=== PATIENT | female | born 1945 | race Caucasian/White ===

== ENCOUNTER → 2016-11-24 | Outpatient (CLI) | payer MEDICARE, OTHER ==
[~2016-11-24] MED LIST: ASCO500T2 PO; ASPI-482 PO; CALC-313 PO; CELE200C PO; CHOL100013 PO; CRESTOR10 MG PO; CYAN200014 PO; FLEC100T PO; HYDR-2163 PO; METO25TA4 PO; NIFE90TA9 PO; OMEG-33 PO; QUIN1TAB6 PO
--- NOTE | 2016-11-24 12:23 | RAD ---
DATE: 11/24/2016. EXAM: DIGITAL SCREEN BILAT W/CAD. HISTORY: Routine mammographic screening. COMPARISON: 11/05/2013. This study was interpreted with the benefit of Computerized Aided Detection (CAD). FINDINGS: The breast parenchyma shows scattered fibroglandular densities. There is a new small nodule posteriorly and slightly laterally on the right CC view. It may correspond with a small nodule posterior superiorly on the MLO projection. See annotations. Scattered calcifications on the left appear benign. There is no suspicious finding on the left. BI-RADS CATEGORY: 0 INCOMPLETE: NEEDS ADDITIONAL IMAGING EVALUATION AND/OR PRIOR MAMMOGRAMS FOR COMPARISON.. RECOMMENDED FOLLOW-UP: ADD ADDITIONAL IMAGING. Recommend spot compression and sonography superolaterally on the right to assess a new nodule. See annotations. PQRS compliance statement: Patient information was entered into a reminder system with a target due date (now) for the next mammogram. Mammography is a sensitive method for finding small breast cancers, but it does not detect them all and is not a substitute for careful clinical examination. A negative mammogram does not negate a clinically suspicious finding and should not result in delay in biopsying a clinically suspicious abnormality. "Our facility is accredited by the [employer] Mammography Program."
== END | disposition home or self-care (01) ==
LOC: MAMMO 09:11
PROVIDERS: ATTEND Family Medicine
DX: Z12.31 Encounter for screening mammogram for malignant neoplasm of breast (principal)
CPT/HCPCS: G0202; 77067

== ENCOUNTER → 2016-11-24 | Outpatient (CLI) | payer MEDICARE, OTHER ==
[2016-11-24 09:40] LABS: CHOLESTEROL/HDL RATIO 2.7
--- NOTE | 2016-11-24 13:52 | CARD ---
APPROVED REPORT EXAM: Two-dimensional and M-mode echocardiogram with Doppler and color Doppler. Other Information Quality : AverageHR: 55bpm INDICATION Paroxysmal supraventricular tachycardia 2D DIMENSIONS RVDd3.2 (2.9-3.5cm)Left Atrium(2D)3.1 (1.6-4.0cm) IVSd1.0 (0.7-1.1cm)Aortic Root(2D)2.9 (2.0-3.7cm) LVDd5.0 (3.9-5.9cm)LVOT Diameter2.0 (1.8-2.4cm) PWd0.8 (0.7-1.1cm)LVDs3.6 (2.5-4.0cm) FS (%) 27.3 %SV62.9 ml Aortic Valve AoV Peak Henrry.137.4cm/sAoV VTI34.1cm AO Peak GR.7.5mmHgLVOT Peak Henrry.110.7cm/s LVOT VTI 28.33cmAO Mean GR.4mmHg JUNG (VMAX)2.02pc6OVX (VTI)2.64cm2 Mitral Valve MV E Xvugwbkg81.2cm/sMV DECEL ZYYY852pr MV A Jibhurrl45.4cm/sMV E Mean Gr.1mmHg MV UEK84akE/A Ratio1.0 MV A Cgnsgkvz431mrHFD (PHT)2.81cm2 TDI E/Lateral E'8.2E/Medial E'9.1 Pulmonary Valve PV Peak Abmalwlu27.3cm/sPV Peak Grad.2mmHg RVOT VTI14.0cm Tricuspid Valve TR P. Yywkbhsf330ia/sRAP HWQRZIHM5lvXm TR Peak Gr.50jaCnKZVL24csKs Pulmonary Vein S1 Ewhiwfrt87.3cm/sD2 Vpqqldeo53.7cm/s PVa qvxlnxzd244ieri LEFT VENTRICLE The left ventricle is normal size. There is normal left ventricular wall thickness. Left ventricle sy stolic function is normal. The Ejection Fraction is 55-60%. There is normal LV segmental wall motion. Transmitral Doppler flow pattern is Grade I-abnormal relaxation pattern. There is no ventricular sep libra defect visualized. RIGHT VENTRICLE The right ventricle is normal size. There is normal right ventricular wall thickness. The right ventr icular systolic function is normal. ATRIA The left atrium size is normal. The right atrium size is normal. The interatrial septum is intact wit h no evidence for an atrial septal defect or patent foramen ovale as noted on 2-D or Doppler imaging. AORTIC VALVE The aortic valve is normal in structure and function. Doppler and Color Flow revealed no significant aortic regurgitation. There is no significant aortic valvular stenosis. MITRAL VALVE The mitral valve is normal in structure. There is no evidence of mitral valve prolapse. There is no m itral valve stenosis. Doppler and Color Flow revealed mild mitral regurgitation. TRICUSPID VALVE The tricuspid valve is normal in structure. Doppler and Color Flow revealed mild tricuspid regurgitat ion. The PA pressure was estimated at 30 mmHg. PULMONIC VALVE The pulmonary valve is normal in structure and function. Doppler and Color Flow revealed trace pulmon ic valvular regurgitation. GREAT VESSELS The aortic root is normal in size. The ascending aorta is normal in size. Normal pulmonary venous kenn w (Doppler). The IVC is normal in size and collapses >50% with inspiration. PERICARDIAL EFFUSION There is no pleural effusion. There is no evidence of significant pericardial effusion. Critical Notification Critical Value: No <Conclusion> The left ventricle is normal size. Left ventricle systolic function is normal. The Ejection Fraction is 55-60%. There is no significant aortic valvular stenosis. Doppler and Color Flow revealed no significant aortic regurgitation. Doppler and Color Flow revealed mild mitral regurgitation. Doppler and Color Flow revealed mild tricuspid regurgitation. The PA pressure was estimated at 30 mmHg.
== END | disposition home or self-care (01) ==
LOC: ECHO 08:10
PROVIDERS: ATTEND Internal Medicine Cardiovascular Disease
DX: I47.1 Supraventricular tachycardia (principal); E78.5 Hyperlipidemia, unspecified; I34.0 Nonrheumatic mitral (valve) insufficiency; I37.1 Nonrheumatic pulmonary valve insufficiency
CPT/HCPCS: 36415; 80061; 93306

== ENCOUNTER → 2016-11-29 | Outpatient (CLI) | payer MEDICARE, OTHER ==
--- NOTE | 2016-11-29 09:25 | RAD ---
DATE: 11/29/2016 EXAM: DIGITAL DIAGNOSTIC RT HISTORY: Suspicious screening study COMPARISON: 11/24/2016 This study was interpreted with the benefit of Computerized Aided Detection (CAD). FINDINGS: On the screening study a faint nodular opacity was seen on only the right cc view. Spot compression and rolled cc views of that region today failed to show a discrete nodule. Normal heterogeneous fibroglandular shadows are seen. The straight mediolateral view also shows no evidence of a nodule. The appearance on the screening study was probably due to superimposed fibroglandular shadows. IMPRESSION: Additional views of the right breast did not demonstrate a breast nodule. Routine yearly mammographic follow-up is suggested. BI-RADS CATEGORY: 2 BENIGN FINDING(S) RECOMMENDED FOLLOW-UP: 12M 12 MONTH FOLLOW-UP PQRS compliance statement: Patient information was entered into a reminder system with a target due date for the next mammogram. Mammography is a sensitive method for finding small breast cancers, but it does not detect them all and is not a substitute for careful clinical examination. A negative mammogram does not negate a clinically suspicious finding and should not result in delay in biopsying a clinically suspicious abnormality. "Our facility is accredited by the [employer] Mammography Program."
== END | disposition home or self-care (01) ==
LOC: MAMMO 08:45
PROVIDERS: ATTEND Family Medicine
DX: R92.8 Other abnormal and inconclusive findings on diagnostic imaging of breast (principal)
CPT/HCPCS: G0206; 77065

== ENCOUNTER 2016-12-10 02:59 | Inpatient (IN) | payer MEDICARE, OTHER ==
[~2016-12-10] VITALS: Ht 167.6 cm; Wt 85.7 kg
[2016-12-10] MEDS ORDERED: IOHEXOL 300 MG/ML 75 ML VIAL IV ONE (04:00)
[2016-12-10] MEDS ORDERED: CONTRAST GIVEN MC PRN (04:00)
[2016-12-10 04:02] LABS: BASO % 1 % (0-3); EOS % 2 % (0-3); HEMATOCRIT 41.1 % (36.0-47.0); HEMOGLOBIN 13.7 g/dL (12.0-15.5); LYMPH # 2.4 x10^3/uL (1.0-4.8); LYMPH % 35 % (24-48); MEAN CORPUSCULAR HEMOGLOBIN 30 pg (25-35); MEAN CORPUSCULAR HGB CONC 33 g/dL (31-37); MEAN CORPUSCULAR VOLUME 91 fL (79-100); MONO % 10 % (0-9); NEUT % 52 % (31-73); PLATELET COUNT 181 x10^3/uL (140-400); RED BLOOD COUNT 4.53 x10^6/uL (3.50-5.40); RED CELL DISTRIBUTION WIDTH 13.8 % (11.5-14.5); WHITE BLOOD COUNT 6.8 x10^3/uL (4.0-11.0)
[2016-12-10 04:12] LABS: CALCIUM 9.4 mg/dL (8.5-10.1); CREATININE 0.8 mg/dL (0.6-1.0); GFR 70.9; POTASSIUM 3.2 mmol/L (3.5-5.1)
[2016-12-10 04:17] LABS: ALBUMIN 3.7 g/dL (3.4-5.0); TOTAL BILIRUBIN 0.8 mg/dL (0.2-1.0); TOTAL PROTEIN 7.3 g/dL (6.4-8.2)
[2016-12-10 04:21] LABS: BILIRUBIN,URINE NEGATIVE (NEG); GLUCOSE,URINE NEGATIVE (NEG); NITRITE,URINE NEGATIVE (NEG); PROTEIN,URINE NEGATIVE (NEG-TRACE); UROBILINOGEN,URINE 0.2 mg/dL (0.2 mg/dL)
[2016-12-10 04:43] LABS: BACTERIA,URINE 0 /HPF (0-FEW); RBC,URINE OCC /HPF (0-2); SQUAMOUS EPITHELIAL CELL,UR FEW /LPF; WBC,URINE TNTC /HPF (0-4)
--- NOTE | 2016-12-10 04:59 | PHYS DOC ---
Past Medical History Past Medical History: Arrhythmia, Hypertension Past Surgical History: Tonsillectomy Additional Past Surgical Histo: LOW BACK, NECK, HEMROIDS, RIGHT FOOT Alcohol Use: None Adult General Chief Complaint Chief Complaint: ABDOMINAL PAIN HPI HPI 71-year-old female whose presenting with intermittent worsening epigastric and left upper quadrant pain for the last several days. She denies any nausea or vomiting. She states her symptoms have not affected her ability to eat or drink. She says meals do not make the pain worse. She denies any history of abdominal surgery whatsoever. Her pain is rated an 8 out of 10 on the pain scale localized permanently to the left upper quadrant. Review of Systems Review of Systems Constitutional: Denies fever or chills [] Eyes: Denies change in visual acuity, redness, or eye pain [] HENT: Denies nasal congestion or sore throat [] Respiratory: Denies cough or shortness of breath [] Cardiovascular: No additional information not addressed in HPI [] GI: Has abdominal pain, denies nausea, denies vomiting, denies bloody stools or diarrhea [] : Denies dysuria or hematuria [] Musculoskeletal: Denies back pain or joint pain [] Integument: Denies rash or skin lesions [] Neurologic: Denies headache, focal weakness or sensory changes [] Endocrine: Denies polyuria or polydipsia [] Current Medications Current Medications Current Medications Medications (Trade) Dose Ordered Sig/Feliciano Start Time Stop Time Status Last Admin Dose Admin Ceftriaxone Sodium (Rocephin 1gm Ivpb For Omni) 50 ml @ 100 mls/hr 1X ONCE 12/10/16 05:00 12/10/16 05:29 DC 12/10/16 04:59 100 MLS/HR Info 1 each 1 each PRN DAILY PRN 12/10/16 04:00 12/12/16 03:59 Iohexol (Omnipaque 300 Mg/ml) 75 ml 1X ONCE 12/10/16 04:00 12/10/16 04:01 DC 12/10/16 04:30 75 ML Allergies Allergies Allergies Uncoded Allergies Type Severity Reaction Last Updated Verified ADHESIVE TAPE Allergy Mild Rash 06/06/14 Physical Exam Physical Exam Constitutional: Well developed, well nourished, no acute distress, non-toxic appearance. [] HENT: Normocephalic, atraumatic, bilateral external ears normal, oropharynx moist, no oral exudates, nose normal. [] Eyes: PERRLA, EOMI, conjunctiva normal, no discharge. [] Neck: Normal range of motion, no tenderness, supple, no stridor. [] Cardiovascular:Heart rate regular rhythm, no murmur [] Lungs & Thorax: Bilateral breath sounds clear to auscultation [] Abdomen: Bowel sounds normal, soft, no tenderness, no masses, no pulsatile masses. [] Skin: Warm, dry, no erythema, no rash. [] Back: No tenderness, no CVA tenderness. [] Extremities: No tenderness, no cyanosis, no clubbing, ROM intact, no edema. [] Neurologic: Alert and oriented X 3, normal motor function, normal sensory function, no focal deficits noted. [] Psychologic: Affect normal, judgement normal, mood normal. [] Current Patient Data Vital Signs Vital Signs Date Time Temp Pulse Resp B/P Pulse Ox O2 Delivery O2 Flow Rate FiO2 12/10/16 05:30 62 Room Air 12/10/16 05:30 137/63 96 12/10/16 03:13 97.6 20 97.6 Lab Values Laboratory Tests Test 12/10/16 03:40 12/10/16 03:45 White Blood Count 6.8x10^3/uL (4.0-11.0) Red Blood Count 4.53x10^6/uL (3.50-5.40) Hemoglobin 13.7g/dL (12.0-15.5) Hematocrit 41.1% (36.0-47.0) Mean Corpuscular Volume 91fL (79-100) Mean Corpuscular Hemoglobin 30pg (25-35) Mean Corpuscular Hemoglobin Concent 33g/dL (31-37) Red Cell Distribution Width 13.8% (11.5-14.5) Platelet Count 181x10^3/uL (140-400) Neutrophils (%) (Auto) 52% (31-73) Lymphocytes (%) (Auto) 35% (24-48) Monocytes (%) (Auto) 10% (0-9) H Eosinophils (%) (Auto) 2% (0-3) Basophils (%) (Auto) 1% (0-3) Neutrophils # (Auto) 3.6x10^3uL (1.8-7.7) Lymphocytes # (Auto) 2.4x10^3/uL (1.0-4.8) Monocytes # (Auto) 0.7x10^3/uL (0.0-1.1) Eosinophils # (Auto) 0.1x10^3/uL (0.0-0.7) Basophils # (Auto) 0.0x10^3/uL (0.0-0.2) Sodium Level 141mmol/L (136-145) Potassium Level 3.2mmol/L (3.5-5.1) L Chloride Level 104mmol/L (98-107) Carbon Dioxide Level 31mmol/L (21-32) Anion Gap 6 (6-14) Blood Urea Nitrogen 18mg/dL (7-20) Creatinine 0.8mg/dL (0.6-1.0) Estimated GFR (Cockcroft-Gault) 70.9 BUN/Creatinine Ratio 23 (6-20) H Glucose Level 103mg/dL (70-99) H Calcium Level 9.4mg/dL (8.5-10.1) Total Bilirubin 0.8mg/dL (0.2-1.0) Aspartate Amino Transferase (AST) 15U/L (15-37) Alanine Aminotransferase (ALT) 18U/L (14-59) Alkaline Phosphatase 82U/L (46-116) Troponin I Quantitative < 0.017ng/mL (0.000-0.055) Total Protein 7.3g/dL (6.4-8.2) Albumin 3.7g/dL (3.4-5.0) Albumin/Globulin Ratio 1.0 (1.0-1.7) Lipase 43U/L (73-393) L Urine Collection Type Unknown Urine Color Yellow Urine Clarity Clear Urine pH 7.0 Urine Specific [place] 1.020 Urine Protein Negativemg/dL (NEG-TRACE) Urine Glucose (UA) Negativemg/dL (NEG) Urine Ketones (Stick) Negativemg/dL (NEG) Urine Blood Negative (NEG) Urine Nitrite Negative (NEG) Urine Bilirubin Negative (NEG) Urine Urobilinogen Dipstick 0.2mg/dL (0.2 mg/dL) Urine Leukocyte Esterase Large (NEG) Urine RBC Occ/HPF (0-2) Urine WBC Tntc/HPF (0-4) Urine Squamous Epithelial Cells Few/LPF Urine Bacteria 0/HPF (0-FEW) Urine Hyaline Casts Few/HPF Urine Mucus Slight/LPF Laboratory Tests 12/10/16 03:40 Laboratory Tests 12/10/16 03:40 EKG EKG EKG as interpreted by me shows sinus rhythm with a rate of 65 bpm. There is a leftward axis. There are no obvious ischemic findings. Intervals are normal. Radiology/Procedures Radiology/Procedures CT of the abdomen/pelvis with IV contrast demonstrates the following: CT abdomen and pelvis with contrast: Reason for examination: Left upper quadrant pain for 4 days. Helical images were obtained through the abdomen and pelvis with intravenous administration of 75 cc Omnipaque 300. Reconstruction was performed in sagittal and coronal planes. Exposure: One or more of the following individualized dose reduction techniques were used for this examination: 1. Automated exposure control. 2. Adjustment of the mA and/or kV according to patient size. 3. Use of iterative reconstruction technique. The lung bases are clear. The heart size is normal with no pericardial effusion seen. No abnormalities seen at the liver, spleen, adrenal glands or gallbladder. There is fatty atrophy of the pancreas with some mild increase in the density in the adjacent mesenteric fat. Mild changes of pancreatitis cannot be excluded. Recommend clinical correlation. The abdominal aorta and inferior vena cava show no acute abnormalities. No abnormalities seen in the appendix. There is some diverticulosis without evidence of diverticulitis. The small intestinal tract shows no abnormal dilatation or wall thickening and no evidence of obstruction. There is a small hiatal hernia. No other abnormalities are seen in the stomach the kidneys show no renal masses, renal calculi, hydronephrosis or evidence of obstructive uropathy. No abnormalities seen in the bladder, uterus or ovaries. No free fluid or free air is seen in the abdomen or pelvis. There is severe degenerative change at the L5-S1 disc level. No acute bony abnormalities are evident. Impression: Diffuse fatty atrophy of the pancreas with some increased haziness in the adjacent fat. Mild changes of pancreatitis cannot be excluded. Recommend clinical correlation. Diverticulosis in the colon without evidence of diverticulitis. No other focal abnormalities evident in the abdomen or pelvis. Electronically signed by: Afia Luna MD (Dec 10, 2016 05:18:28) Course & Med Decision Making Course & Med Decision Making Pertinent Labs and Imaging studies reviewed. (See chart for details) This 71-year-old female who's having extensive pain to the left upper quadrant has CT findings consistent with mild pancreatitis. Her urinalysis also showed large amounts of WBCs for which a dose of IV Rocephin was ordered and administered. I'll be admitting her for her pancreatitis and will keep her nothing by mouth with fluid and pain control as needed. I discussed the need to admit the patient with Dr. Naik and the possibility to evaluate her gallbladder as a cause as she still has her gallbladder. He was very agreeable with this plan and agreed to accept the patient for admission. Dragon Disclaimer Dragon Disclaimer This electronic medical record was generated, in whole or in part, using a voice recognition dictation system. Departure Departure Impression: Primary Impression: Abdominal pain Additional Impression: Pancreatitis Disposition: ADMITTED INPATIENT Admitting Physician: Ricky Naik Condition: STABLE Referrals: RICKY NAIK MD (PCP) Problem Qualifiers MER SILVERMAN DO Dec 10, 2016 04:59
[2016-12-10] MEDS ORDERED: CEFTRIAXONE 1GM IVPB FOR OMNI 50 ML IV ONE (05:00)
--- NOTE | 2016-12-10 05:20 | RAD ---
CT abdomen and pelvis with contrast: Reason for examination: Left upper quadrant pain for 4 days. Helical images were obtained through the abdomen and pelvis with intravenous administration of 75 cc Omnipaque 300. Reconstruction was performed in sagittal and coronal planes. Exposure: One or more of the following individualized dose reduction techniques were used for this examination: 1. Automated exposure control. 2. Adjustment of the mA and/or kV according to patient size. 3. Use of iterative reconstruction technique. The lung bases are clear. The heart size is normal with no pericardial effusion seen. No abnormalities seen at the liver, spleen, adrenal glands or gallbladder. There is fatty atrophy of the pancreas with some mild increase in the density in the adjacent mesenteric fat. Mild changes of pancreatitis cannot be excluded. Recommend clinical correlation. The abdominal aorta and inferior vena cava show no acute abnormalities. No abnormalities seen in the appendix. There is some diverticulosis without evidence of diverticulitis. The small intestinal tract shows no abnormal dilatation or wall thickening and no evidence of obstruction. There is a small hiatal hernia. No other abnormalities are seen in the stomach the kidneys show no renal masses, renal calculi, hydronephrosis or evidence of obstructive uropathy. No abnormalities seen in the bladder, uterus or ovaries. No free fluid or free air is seen in the abdomen or pelvis. There is severe degenerative change at the L5-S1 disc level. No acute bony abnormalities are evident. Impression: Diffuse fatty atrophy of the pancreas with some increased haziness in the adjacent fat. Mild changes of pancreatitis cannot be excluded. Recommend clinical correlation. Diverticulosis in the colon without evidence of diverticulitis. No other focal abnormalities evident in the abdomen or pelvis. Electronically signed by: Afia Luna MD (Dec 10, 2016 05:18:28)
[2016-12-10] MEDS ORDERED: ONDANSETRON PF 4 MG/2 ML VIAL. IV PRN (05:45)
[2016-12-10 06:30] VITALS: BP 134/59
[2016-12-10 07:00] VITALS: BP 126/57
[2016-12-10] MEDS: FENTANYL PF 100 MCG/2 ML VIAL. IV PRN ×3 (07:33→14:26)
--- NOTE | 2016-12-10 08:09 | EKG ---
[facility] [address] [place] [address] Test Date: 2016-12-10 Test Time: 03:32:19 Pat Name: AUGUST DIAS Department: Room: Gender: F Card Assembler: : 1945 Requested By: MER SILVERMAN Order Number: [id number] Reading MD: Measurements Intervals [place] Rate: 65 P: 32 FL: 176 QRS: -15 QRSD: 94 T: 34 QT: 434 QTc: 452 Interpretive Statements SINUS RHYTHM LEFTWARD AXIS RI6.01 No previous ECG available for comparison
[2016-12-10] MEDS ORDERED: MAGN400C PO (09:26)
[2016-12-10] MEDS ORDERED: VITA150T PO (09:26)
--- NOTE | 2016-12-10 09:42 | ACF ---
Admit Criteria Forms Admit Criteria Forms Admit Criteria Forms PANCREATITIS Clinical Indications for Admission to Inpatient Care (Place 'X' for any and all applicable criteria): Admission is indicated for ANY ONE of the following (1)(2)(3)(4): [ X]I. Acute pancreatitis[A] as indicated by 2 or more of the following: [X ]a) Abdominal pain (eg, epigastric, left upper quadrant) [ ]b) Serum amylase or serum lipase greater than 3 times the upper limit of normal [X ]c) Characteristic findings from abdominal imaging (eg, pancreatic inflammation, pancreatic necrosis, peripancreatic fluid collection)[B] [ ]II. Pancreatitis (acute or chronic ) requiring inpatient care as indicated by 1 or more of the following : [ ]a) Inability to maintain oral hydration Hypoxemia [ ]b) Evidence of infection (eg, fever, peripancreatic abscess) [ ]c) Severe pain requiring acute inpatient management [ ]d) Hemodynamic instability [ ]e) Hypoxemia [ ]f) Acute renal failure [ ]g) Severe electrolyte abnormalities Extended stay beyond goal length of stay may be needed for (1)(11) [ ]a) Severe acute pancreatitis (10)(19) [ ]b) Persistent symptoms, ascites, or pleural effusion [ ]c) Abdominal compartment syndrome (10) [ ]d) Late complications [ ]e) Acute renal failure (27) [ ]f) Gallstones in gallbladder The original [employer] content created by [employer] has been revised. The portions of the content which have been revised are identified through the use of italic text or in bold,and [facility] has neither reviewed nor approved the modified material.All other unmodified content is copyright [employer]. Please see references footnoted in the original [employer] edition 2016 KATHERINE NEWTON Dec 10, 2016 09:42
[2016-12-10 11:00] VITALS: BP 137/69
[2016-12-10] MEDS: HYDROMORPHONE 2 MG/ML VIAL. IVP PRN ×3 (12:11→23:40)
--- NOTE | 2016-12-10 13:30 | PDOC ---
Provider Note Provider Note [id number] RICKY SOTO MD Dec 10, 2016 13:30
--- NOTE | 2016-12-10 13:50 | HP ---
ADMIT DATE: 12/10/2016 CHIEF COMPLAINT: Left upper quadrant abdominal pain. HISTORY OF PRESENT ILLNESS: A 71-year-old white female with normal medical history except for hypertension and hyperlipidemia, came in with 2 days of increasing left-sided upper abdominal pain and nausea. There was no vomiting, fever, chills, urinary tract symptoms, melena, hematochezia, heartburn, cough or other symptoms. CT scan showed some haziness in the pancreas and she was told she had "pancreatitis" even though the lipase and liver function tests were all normal. She was given IV Rocephin because of urinary tract infection. PAST MEDICAL HISTORY: She has had C-sections and joint surgeries. No other serious surgery. She has had atrial fibrillation with ablation done, takes aspirin, Crestor and blood pressure meds for that. ALLERGIES: NO ALLERGIES TO DRUGS. SOCIAL HISTORY: Nonsmoker, nondrinker, , physically active. FAMILY HISTORY: Unremarkable. REVIEW OF SYSTEMS: No other complaints. OBJECTIVE: ENT: All within normal limits. No jaundice or lesions. NECK: No masses, nodes or bruits. LUNGS: Clear. CARDIOVASCULAR: Regular rate. No irregular beat or murmur or tachycardia. BREASTS: Not examined. ABDOMEN: No rashes seen. She is tender, more in the left upper quadrant than anywhere with no guarding, masses or rebound. The right upper quadrant was nontender as was both flanks. EXTREMITIES: Good pedal and radial pulses. No joint or skin lesions or nail bed findings. ASSESSMENT: Left upper quadrant pain, etiology is unclear. She does have urinary tract infection and this certainly could be part of the problem. This could be herpes zoster without skin rash, but no lab ____ support pancreatitis or gallbladder disease. PLAN: Sonogram of the gallbladder, IV fluids, Rocephin, urine culture and followup for skin lesions. RICKY SOTO MD DR: FABIAN/ursula JOB#: [id number] / [id number]
[2016-12-10] MEDS ORDERED: METOPROLOL TART IMMED RELEASE 25 MG TABLET PO SCH ×2 (14:00→15:00)
[2016-12-10] MEDS: IV DEXTROSE 5%-LACT RINGERS 1,000 ML IV SCH ×2 (14:25→23:48)
--- NOTE | 2016-12-10 14:51 | RAD ---
Indication upper abdominal pain. Grayscale imaging was performed. Examination was targeted to the right upper quadrant. No prior imaging is available. There is increased attenuation of the ultrasound beam by the liver compatible with fatty infiltration. A focal mass lesion is not seen in the visualized liver. The gallbladder appears normal. The common bile duct diameter of approximately 5 mm is within normal limits. The right kidney appears unremarkable. The pancreas was largely obscured and poorly visualized. Similarly the IVC was largely obscured. IMPRESSION: Normal gallbladder. Fatty infiltration of the liver. Midline structures obscured by gas
[2016-12-10 15:00] VITALS: BP 129/61
[2016-12-10] MEDS: HYDROCODONE/APAP 5/325MG TABLET. PO PRN (17:12)
[2016-12-10] MEDS: AMLODIPINE BESYLATE 5 MG TABLET PO SCH (17:12)
[2016-12-10 19:33] VITALS: BP 142/63
[2016-12-10 23:06] VITALS: BP 119/65
[2016-12-11 03:09] VITALS: BP 117/67
[2016-12-11] MEDS: FENTANYL PF 100 MCG/2 ML VIAL. IV PRN (05:16)
[2016-12-11] MEDS: CEFTRIAXONE SODIUM 1 GM in IV NORMAL SALINE 50ML 50 ML IV SCH (05:19)
[2016-12-11 07:00] VITALS: BP 147/74
[2016-12-11] MEDS: HYDROCODONE/APAP 5/325MG TABLET. PO PRN (08:42)
[2016-12-11] MEDS: METOPROLOL TART IMMED RELEASE 25 MG TABLET PO SCH (08:42)
[2016-12-11] MEDS: IV DEXTROSE 5%-LACT RINGERS 1,000 ML IV SCH (08:43)
[2016-12-11] MEDS: AMLODIPINE BESYLATE 5 MG TABLET PO SCH (08:43)
--- NOTE | 2016-12-11 10:15 | PDOC ---
Provider Note Provider Note LUQ pain persists, is hyperesthetic there also- opioids not effective- now has 1 cm red slightly vesicular lesion in L upper abdomen cons w/ HZ- will start valtrex, celebrex, peter and lidoderm- reg diet - cont rocephin pending UC- family aware of dx RICKY SOTO MD Dec 11, 2016 10:15
[2016-12-11] MEDS: LIDOCAINE (700MG/PATCH) PATCH. TD SCH (10:54)
[2016-12-11] MEDS: GABAPENTIN 100 MG CAPSULE. PO SCH ×3 (10:54→20:50)
[2016-12-11] MEDS: valACYclovir 500 MG TABLET. PO SCH ×3 (10:54→20:50)
[2016-12-11 11:00] VITALS: BP 125/71
[2016-12-11] MEDS ORDERED: CELECOXIB 200 MG CAPSULE PO SCH (11:30)
[2016-12-11 15:00] VITALS: BP 130/60
[2016-12-11 19:25] VITALS: BP 129/61
[2016-12-11 23:28] VITALS: BP 145/60
[2016-12-12 03:30] VITALS: BP 152/68
[2016-12-12] MEDS: HYDROCODONE/APAP 5/325MG TABLET. PO PRN (03:35)
[2016-12-12] MEDS: CEFTRIAXONE SODIUM 1 GM in IV NORMAL SALINE 50ML 50 ML IV SCH (06:09)
[2016-12-12 07:00] VITALS: BP 132/60
[2016-12-12] MEDS: GABAPENTIN 100 MG CAPSULE. PO SCH (08:27)
[2016-12-12 08:28] VITALS: BP 132/60
[2016-12-12] MEDS: valACYclovir 500 MG TABLET. PO SCH (08:28)
[2016-12-12] MEDS: AMLODIPINE BESYLATE 5 MG TABLET PO SCH (08:28)
[2016-12-12] MEDS: METOPROLOL TART IMMED RELEASE 25 MG TABLET PO SCH (08:28)
[2016-12-12] MEDS: LIDOCAINE (700MG/PATCH) PATCH. TD SCH (08:29)
--- NOTE | 2016-12-12 08:35 | DISCH ---
DISCHARGE INSTRUCTIONS Condition on Discharge Condition on Discharge: Stable Activity After Discharge Activity Instructions for Disc: No restrictions Diet after Discharge Diet after Discharge: Regular Follow-Up Follow up with: dr nishi Crump w RICKY SOTO MD Dec 12, 2016 08:35
--- NOTE | 2016-12-12 08:39 | PDOC ---
Provider Note Provider Note [id number] RICKY SOTO MD Dec 12, 2016 08:39
--- NOTE | 2016-12-12 09:56 | DS ---
DATE OF DISCHARGE: 12/12/2016 HOSPITAL SUMMARY: A 71-year-old white female admitted with left upper quadrant and midline abdominal pain and some mild nausea, but no other specific symptoms. She did not have urinary tract symptoms. Urinalysis showed evidence of white blood cells and leukocyte esterase and urine culture was not obtained. Chemistry profile and CBC were within normal limits. A CT scan of the abdomen and pelvis showed just mild atrophy of the pancreas with some haziness, but no other acute changes. Ultrasound of the gallbladder was normal except for fatty liver changes. She was initially felt in the ER to possibly have pancreatitis, but she did have a normal lipase and her pain appeared to be more of a dermatomal left thoracic distribution. About 36 hours after admission, she developed two small 1-cm lesions in the left upper quadrant and left flank consistent with early vesicular red changes of herpes zoster, and she also has hyperesthesia of the skin consistent with that as well. She was treated with Valtrex and Lidoderm, gabapentin, as well as IV Rocephin and had good results with urinary treatment as well as pain control and she is comfortable to be followed as an outpatient at this point. FINAL DIAGNOSES: 1. Thoracic herpes zoster, left-sided. 2. Urinary tract infection. OPERATIONS, PROCEDURES, COMPLICATIONS, AND CONSULTATIONS: None. DISPOSITION: She will continue Valtrex 1 gram t.i.d. for one full week. No further antibiotics needed after three doses of IV Rocephin. She will take Lidoderm patches if covered, use daily, continue home Celebrex, gabapentin 100 to 300 mg t.i.d. p.r.n. for nerve pain. We will see her in followup in the office in 1 week. The possibility of postherpetic neuralgia was discussed with the patient and we will manage this accordingly. RICKY SOTO MD DR: FABIAN/ursula JOB#: [id number] / [id number]
== END 2016-12-12 11:35 | disposition home or self-care (01) | DRG 595 ==
LOC: ER 02:59 → 4 NORTH 05:32
PROVIDERS: ADMIT Family Medicine; ATTEND Family Medicine
DX: B02.9 Zoster without complications (principal); K85.90 Acute pancreatitis without necrosis or infection, unspecified; N39.0 Urinary tract infection, site not specified; E78.5 Hyperlipidemia, unspecified; I10 Essential (primary) hypertension; I48.91 Unspecified atrial fibrillation; K57.30 Diverticulosis of large intestine without perforation or abscess without bleeding; Z79.82 Long term (current) use of aspirin; Z88.8 Allergy status to other drugs, medicaments and biological substances
CPT/HCPCS: 36415; 74177; 76705; 80053; 81001; 83690; 84484; 85027; 87086; 93005; 96365; J0690; J0696; J1170; J3010; Q9967; 99285-25

== ENCOUNTER → 2018-02-01 | Outpatient (CLI) | payer MEDICARE, OTHER | END | disposition home or self-care (01) | LOC: MAMMO 09:39 | DX: Z12.31 Encounter for screening mammogram for malignant neoplasm of breast (principal); I10 Essential (primary) hypertension; E78.5 Hyperlipidemia, unspecified | CPT/HCPCS: 77063; 77067 ==

== ENCOUNTER → 2018-07-04 | Outpatient (CLI) | payer MEDICARE, OTHER ==
[~2018-07-04] MED LIST changes: +MAGN400C PO; +QUIN1TAB17 PO; -QUIN1TAB6 PO; +VITA150T PO
--- NOTE | 2018-07-04 10:20 | KCIC ---
EXAM: Left hip, 2 views. HISTORY: Trochanteric bursitis. COMPARISON: None. FINDINGS: Frontal and frog-leg views of the left hip are obtained. There is no fracture, dislocation or subluxation. There is minimal marginal femoral head spurring. IMPRESSION: No acute osseous finding. Minimal left hip osteoarthritis. Electronically signed by: Anum Mcintosh MD (07/04/2018 10:17 AM) [facility]
== END | disposition home or self-care (01) ==
LOC: KCIC 09:37
PROVIDERS: ATTEND Family Medicine
DX: M70.62 Trochanteric bursitis, left hip (principal); M16.12 Unilateral primary osteoarthritis, left hip
CPT/HCPCS: 73502

== ENCOUNTER 2018-10-13 07:46 | Emergency (ER) | payer MEDICARE, OTHER ==
[2018-10-13 09:22] VITALS: BP 154/70
== END 2018-10-13 09:14 | disposition left against medical advice (07) ==
LOC: ER 07:46
DX: M25.572 Pain in left ankle and joints of left foot (principal); Z53.21 Procedure and treatment not carried out due to patient leaving prior to being seen by health care provider

== ENCOUNTER → 2018-12-10 | Outpatient (CLI) | payer MEDICARE, OTHER ==
--- NOTE | 2018-12-10 10:33 | CARD ---
MR#: [id number] Date of Study: 12/10/2018 Ordering Physician: MERCY BALES, Referring Physician: MERYC BALES Tech: Mckenzie Zuniga TALAT APPROVED REPORT EXAM: Two-dimensional and M-mode echocardiogram with Doppler and color Doppler. Other Information Quality : AverageHR: 60bpm Rhythm : NSR INDICATION SVT 2D DIMENSIONS RVDd3.0 (2.9-3.5cm)Left Atrium(2D)3.5 (1.6-4.0cm) IVSd1.1 (0.7-1.1cm)Aortic Root(2D)3.0 (2.0-3.7cm) LVDd4.7 (3.9-5.9cm)LVOT Diameter2.1 (1.8-2.4cm) PWd0.8 (0.7-1.1cm)LVDs2.8 (2.5-4.0cm) FS (%) 39.8 %SV72.6 ml LVEF(%)69.0 (>50%) M-Mode DIMENSIONS Left Atrium(MM)3.94 (2.5-4.0cm)Aortic Root2.77 (2.2-3.7cm) Aortic Valve AoV Peak Henrry.117.5cm/sAoV VTI24.2cm AO Peak GR.5.5mmHgLVOT Peak Henrry.110.4cm/s AO Mean GR.2mmHgAVA (VMAX)3.21cm2 JUNG (VTI)3.20cm2 Mitral Valve MV E Mpaewwph61.4cm/sMV DECEL MUNT972ub MV A Dapeddki88.6cm/sE/A Ratio0.8 MV A Bzxvzkiw12lw Pulmonary Valve PV Peak Xlhqnmby46.3cm/s Tricuspid Valve TR P. Vpnepzqb738sn/sRAP NPIZGBFZ3spDt TR Peak Gr.87whMoPFMZ28btAk LEFT VENTRICLE The left ventricle is normal size. Proximal septal thickening is noted. The left ventricular systolic function is normal. The Ejection Fraction is 65-70%. There is normal LV segmental wall motion. Trans mitral Doppler flow pattern is Grade I-abnormal relaxation pattern. RIGHT VENTRICLE The right ventricle is normal size. There is normal right ventricular wall thickness. The right ventr icular systolic function is normal. ATRIA The left atrium size is normal. The right atrium size is normal. The interatrial septum is intact wit h no evidence for an atrial septal defect or patent foramen ovale as noted on 2-D or Doppler imaging. AORTIC VALVE The aortic valve is normal in structure and function. The aortic valve is trileaflet. Doppler and Col or Flow revealed no significant aortic regurgitation. There is no significant aortic valvular stenosi s. MITRAL VALVE The mitral valve is normal in structure and function. There is no evidence of mitral valve prolapse. There is no mitral valve stenosis. Doppler and Color-flow revealed trace mitral regurgitation. TRICUSPID VALVE The tricuspid valve is normal in structure and function. Doppler and Color Flow revealed trace tricus pid regurgitation. The PA pressure was estimated at 25 mmHg. There is no tricuspid valve prolapse or vegetation. There is no tricuspid valve stenosis. PULMONIC VALVE The pulmonary valve is normal in structure and function. Doppler and Color Flow revealed no pulmonic valvular regurgitation. There is no pulmonic valvular stenosis. GREAT VESSELS The aortic root is normal in size. The ascending aorta is normal in size. The IVC is normal in size a nd collapses >50% with inspiration. PERICARDIAL EFFUSION There is no evidence of significant pericardial effusion. Critical Notification Critical Value: No <Conclusion> The left ventricular systolic function is normal. The Ejection Fraction is 65-70%. There is normal LV segmental wall motion. Transmitral Doppler flow pattern is Grade I-abnormal relaxation pattern. Trace mitral regurgitation. Trace tricuspid regurgitation. The PA pressure was estimated at 25 mmHg. There is no evidence of significant pericardial effusion. Signed by : Mercy Bales, Electronically Approved : 12/10/2018 10:32:48
== END | disposition home or self-care (01) ==
LOC: ECHO 09:36
PROVIDERS: ATTEND Internal Medicine Cardiovascular Disease
DX: I47.1 Supraventricular tachycardia (principal)
CPT/HCPCS: 93306

== ENCOUNTER → 2019-05-29 | Outpatient (CLI) | payer MEDICARE, OTHER ==
--- NOTE | 2019-05-31 18:37 | RAD ---
DATE: 05/29/2019 EXAM: MAMMO LUIS SCREENING BILATERAL HISTORY: Routine screening COMPARISON: 11/24/2016, 02/01/2018 mammographic exams This study was interpreted with the benefit of Computerized Aided Detection (CAD). Breast Density: SCATTERED The breast parenchyma shows scattered fibroglandular densities. Breast parenchyma level B. FINDINGS: No masses, suspicious calcifications, or distortion. IMPRESSION: Stable BI-RADS CATEGORY: 1 NEGATIVE RECOMMENDED FOLLOW-UP: 12M 12 MONTH FOLLOW-UP PQRS compliance statement: Patient information was entered into a reminder system with a target due date in one year for the next mammogram. Mammography is a sensitive method for finding small breast cancers, but it does not detect them all and is not a substitute for careful clinical examination. A negative mammogram does not negate a clinically suspicious finding and should not result in delay in biopsying a clinically suspicious abnormality. "Our facility is accredited by the [employer] Mammography Program."
== END | disposition home or self-care (01) ==
LOC: MAMMO 08:01
PROVIDERS: ATTEND Family Medicine
DX: Z12.31 Encounter for screening mammogram for malignant neoplasm of breast (principal)
CPT/HCPCS: 77063; 77067

== ENCOUNTER 2021-02-01 05:14 | Emergency (ER) | payer MEDICARE, OTHER ==
[~2021-02-01] VITALS: Ht 167.6 cm; Wt 80.0 kg
[~2021-02-01 05:14] MED LIST changes: -ASCO500T2 PO; +ASCO500T4 PO; -HYDR-2163 PO; +HYDR-3068 PO; +NIFE90TA49 PO; -NIFE90TA9 PO; -QUIN1TAB17 PO; +QUIN1TAB26 PO
[2021-02-01 05:20] VITALS: BP 160/68
--- NOTE | 2021-02-01 05:47 | PHYS DOC ---
Past Medical History Past Medical History: Arthritis, Arrhythmia, High Cholesterol, Hypertension (RADHA MOSS DO) Past Surgical History: Tonsillectomy Additional Past Surgical Histo: LOW BACK, NECK, HEMROIDS, RIGHT FOOT, CARDIAC CATH (RADHA MOSS DO) Smoking Status: Never Smoker Alcohol Use: None (RADHA MOSS DO) General Adult EDM: Chief Complaint: LOWER EXT PAIN HPI: HPI: Patient is a 75 year old female with a past medical history of osteoarthritis presents with the chief complaint of right knee pain. Patient states pain has been ongoing to 2 weeks. Pain worse over the last 2 days Pain is located right popliteal / posterior knee. Patient has pain with ROM. SHe is having difficulty walking due to pain. She denies any trauma. Mild improvement with Tylenol and Ibuprofen. No history of DVTs. Declines pain medications at this time. (RADHA MOSS DO) Review of Systems: Review of Systems: Constitutional: Denies fever or chills. [] Eyes: Denies change in visual acuity. [] HENT: Denies nasal congestion or sore throat. [] Respiratory: Denies cough or shortness of breath. [] Cardiovascular: Denies chest pain or edema. [] GI: Denies abdominal pain, nausea, vomiting, bloody stools or diarrhea. [] : Denies dysuria. [] Musculoskeletal: positive knee pain Integument: Denies rash. [] Neurologic: Denies headache, focal weakness or sensory changes. [] Endocrine: Denies polyuria or polydipsia. [] Lymphatic: Denies swollen glands. [] Psychiatric: Denies depression or anxiety. [] (RADHA MOSS DO) Heart Score: C/O Chest Pain: N/A Risk Factors: Risk Factors: DM, Current or recent (<one month) smoker, HTN, HLP, family histo ry of CAD, obesity. Risk Scores: Score 0 - 3: 2.5% MACE over next 6 weeks - Discharge Home Score 4 - 6: 20.3% MACE over next 6 weeks - Admit for Clinical Observation Score 7 - 10: 72.7% MACE over next 6 weeks - Early Invasive Strategies (RADHA MOSS DO) C/O Chest Pain: N/A (GRISELDA REYES DO) Allergies: Allergies: Allergies Uncoded Allergies Type Severity Reaction Last Updated Verified ADHESIVE TAPE Allergy Mild Rash 06/06/14 (RADHA MOSS DO) Physical Exam: PE: General: alert, no acute distress. Skin: warm, dry and intact. Head:: Normocephalic, atraumatic. Neck: Trachea midline. Eyes: EOMI, Normal conjunctiva, No drainage CARDIOVASCULAR: Regular rate and rhythm RESPIRATORY: No respiratory distress Back: Full range of motion. MUSCULOSKELETAL: pain with rom right knee, no right knee effusion GASTROINTESTINAL: Abdomen soft without rebound or guarding. NEUROLOGICAL: Alert and noted to person, place and time. No neurological deficits observed Psychiatric: Cooperative. Normal judgment (RADHA MOSS DO) Current Patient Data: Vital Signs: Vital Signs Date Time Temp Pulse Resp B/P (MAP) Pulse Ox O2 Delivery O2 Flow Rate FiO2 02/01/21 05:20 97.3 60 18 160/68 (98) 98 Room Air 97.3 (RADHA MOSS DO) EKG: EKG: [] (RADHA MOSS DO) Radiology/Procedures: Radiology/Procedures: [] (RADHA MOSS DO) Radiology/Procedures: [address] [address] IMAGING REPORT Signed PATIENT: AUGUST DIAS ACCOUNT: [id number] : 1945 LOCATION: ER AGE: 75 SEX: F EXAM STATUS: PRE ER ORD. PHYSICIAN: RADHA MOSS DO REASON: leg pain PROCEDURE: VENOUS LOWER EXTREMITY RIGHT INDICATION: Reason: leg pain / Spl. Instructions: / History: COMPARISON: None. TECHNIQUE: Grayscale, color and doppler ultrasound images were obtained of the right lower extremity venous vasculature. RIGHT: No thrombus identified in the common femoral vein, femoral vein, popliteal vein or visualized calf veins. IMPRESSION: * No thrombus identified in deep venous system of right lower extremity. Electronically signed by: Derek Soto MD (02/01/2021 6:29 AM) [id number] DICTATED and SIGNED BY: DEREK SOTO MD DATE: 02/01/21 [id number] [address] IMAGING REPORT Signed PATIENT: AUGUST DIAS ACCOUNT: [id number] : 1945 LOCATION: ER AGE: 75 SEX: F EXAM STATUS: REG ER ORD. PHYSICIAN: RADHA MOSS DO REASON: knee pain PROCEDURE: KNEE RIGHT 3V INDICATION: Reason: knee pain / Spl. Instructions: / History: COMPARISON: None. IMPRESSION: Right knee: 3 views obtained. Mild degenerative changes. No definite acute fracture or dislocation. Electronically signed by: Derek Soto MD (02/01/2021 7:06 AM) [id number] DICTATED and SIGNED BY: DEREK SOTO MD DATE: 02/01/21 [id number] (GRISELDA REYES DO) Course & Med Decision Making: Course & Med Decision Making Pertinent Labs and Imaging studies reviewed. (See chart for details) [] Patient evaluated for non traumatic right knee pain. Work up included Xray and US. Patient declines pain medications at this time. Patient signed out to Dr Reyes-- disposition pending radiologic imaging and re- evaluation. (RADHA MOSS DO) Dragon Disclaimer: Francisco Disclaimer: This electronic medical record was generated, in whole or in part, using a voice recognition dictation system. (RADHA MOSS DO) Departure Departure Impression: Primary Impression: Knee pain Disposition: HOME / SELF CARE / HOMELESS Condition: STABLE Referrals: RICKY SOTO MD (PCP) Please follow up with your PCP this week for reevaluation. Patient Instructions: Knee Pain, [id number] RADHA MOSS DO February 01, 2021 05:47 GRISELDA REYES DO February 01, 2021 07:18
--- NOTE | 2021-02-01 06:32 | RAD ---
INDICATION: Reason: leg pain / Spl. Instructions: / History: COMPARISON: None. TECHNIQUE: Grayscale, color and doppler ultrasound images were obtained of the right lower extremity venous vasculature. RIGHT: No thrombus identified in the common femoral vein, femoral vein, popliteal vein or visualized calf ve ins. IMPRESSION: * No thrombus identified in deep venous system of right lower extremity. Electronically signed by: Cosme Naik MD (02/01/2021 6:29 AM) [id number]
--- NOTE | 2021-02-01 07:09 | RAD ---
INDICATION: Reason: knee pain / Spl. Instructions: / History: COMPARISON: None. IMPRESSION: Right knee: 3 views obtained. Mild degenerative changes. No definite acute fracture or dislocation. Electronically signed by: Cosme Naik MD (02/01/2021 7:06 AM) [id number]
== END 2021-02-01 07:43 | disposition home or self-care (01) ==
LOC: ER 05:14
DX: M25.561 Pain in right knee (principal); R26.2 Difficulty in walking, not elsewhere classified; E78.00 Pure hypercholesterolemia, unspecified; I10 Essential (primary) hypertension; M17.11 Unilateral primary osteoarthritis, right knee
CPT/HCPCS: 73562; 93971; 99284-25

== ENCOUNTER → 2022-02-10 | Outpatient (CLI) | payer MEDICARE ==
--- NOTE | 2022-02-10 17:03 | RAD ---
Bilateral digital screening 2-D and 3-D (digital breast tomosynthesis) mammogram: Reason for examination: Routine screening. Comparison: Mammogram from 05/29/2019. Interpretation was made with the benefit of CAD. FINDINGS: Breast density: Category B. There are scattered areas of fibroglandular density. No suspicious breast mass, malignant appearing calcifications, or architectural distortion is seen. IMPRESSION: No evidence of malignancy. Assessment: BI-RADS 1. Negative. Recommendation: Routine screening mammograms. The patient will receive a letter with the results in the mail. Patient information will be entered i nto the mammography reminder system with a target recall date for the next mammogram. A reminder chace er will be generated. Electronically signed by: Sadie Andres MD (02/10/2022 5:01 PM) [id number]
== END ==
LOC: MAMMO 08:56
PROVIDERS: ATTEND Family Medicine
DX: Z12.31 Encounter for screening mammogram for malignant neoplasm of breast (principal)
CPT/HCPCS: 77063; 77067